=== PATIENT | female | born 1970 | race Caucasian/White ===

== ENCOUNTER 2016-11-17 15:52 | Observation (INO) | payer OTHER ==
[~2016-11-17] VITALS: Ht 175.3 cm; Wt 98.2 kg
[~2016-11-17 15:52] MED LIST: BACT800T5 PO; ESTR1 PO; FENT25DI TD; FENT75DI TD; LORTA10 PO; PERC5TAB12 PO; PROT40TA PO; PYRI200T4 PO; SOMA350T PO; STOO100C PO; WELL150T PO; WELLTAB39 PO; XANA0.5T PO; ZOFR4TAB3 SL
[2016-11-17 15:54] VITALS: BP 162/83; PULSE 68; RESP 24; TEMP 98.8; O2SAT 98
[2016-11-17] MEDS ORDERED: SODIUM CHLOR 0.9% 1000 ML INJ 1,000 ML IV SCH (16:18)
[2016-11-17 16:29] VITALS: O2SAT 99
[2016-11-17] MEDS ORDERED: MORPHINE SULFATE 4 MG/ML INJ IV PUSH ONE (16:30)
[2016-11-17] MEDS ORDERED: FAMOTIDINE 20 MG/2 ML VIAL IV PUSH ONE (16:30)
[2016-11-17] MEDS ORDERED: PANTOPRAZOLE SODIUM 40 MG VIAL IVP ONE (16:30)
[2016-11-17] MEDS ORDERED: ONDANSETRON HCL 4 MG/2 ML VIAL IVP ONE (16:30)
--- NOTE | 2016-11-17 16:34 | PD ---
HPI Chief Complaint: Abdominal Pain Time Seen by Provider: 16:30 Travel History International Travel<30 days: No Contact w/Intl Traveler<30days: No Traveled to known affect area: No History of Present Illness HPI 46-year-old female that presents to the ED for evaluation of severe abdominal pain. Per patient she's had this on and off since Monday. Per patient's progressively getting worse. Per patient she cannot keep anything down because causes the pain to be more severe. She has a history multiple surgeries to her abdomen including gastric surgery and hysterectomy. Per patient in total she's had a different surgeries in her abdomen. Per patient she follows with Dr. Crowder and Dr. dumont and apparently she had a CT scan ordered by Dr. Crowder today for the abdomen which was apparently negative. Per patient she was told by Dr. Crowder that she would require an EGD to better evaluate why she is having this pain. She states that she was in the process of getting this set up when she went to work and she started having more pain so she came here to get evaluated. Per patient she called Dr. Crowder who told her to come here. She states that currently the pain is 10 out of 10. Comes and goes. Mainly in the epigastric area. Has an allergy to contrast media. No radiation of the pain. Nausea and vomiting. Per patient she's had liquidy bowel movements but no blood. Last bowel movement was today. PFSH Past Medical History Arthritis: Yes Asthma: Yes (NO RECENT COMPLICATIONS) Autoimmune Disease: No Blood Disorders: No Anxiety: Yes Cancer: No Cardiovascular Problems: No Diabetes: Yes (CONTROLLED THROUGH DIET) Diminished Hearing: No Endocrine: Yes Genitourinary: Yes Hiatal Hernia: No Hypertension: Yes (RESOLVED WITH DIET) Immune Disorder: No Kidney Stones: Yes (CHRONIC) Musculoskeletal: Yes Neurologic: No Psychiatric: No Reproductive: No Respiratory: No Past Surgical History Abdominal Surgery: Yes (gastric bypass,) AICD: No Appendectomy: Yes Cholecystectomy: Yes Gynecologic Surgery: Yes ( PANNICULECTOMY, HERNIA 2005) Hysterectomy: Yes (COMPLETE) Pacemaker: No Other Surgery: Yes Social History Alcohol Use: Yes (OCCASIONAL) Tobacco Use: No Substance Use: No Allergies-Medications (Allergen,Severity, Reaction): Coded Allergies: Contrast Media (Verified Allergy, Severe, Hives,SWELLING AND SOB, 2/13/15) Reported Meds & Prescriptions Reported Meds & Active Scripts Active Percocet 5-325 mg (Oxycodone/Acetaminophen) Oxycodone 5/325 Acetaminophen Tab 1 Tab PO Q4H PRN Pyridium (Phenazopyridine HCl) 200 Mg Tab 200 Mg PO Q8 Zofran ODT (Ondansetron HCl) 4 Mg Tab 4 Mg SL Q6H PRN FOR NAUSEA/VOMITING Bactrim DS (Sulfamethoxazole-Trimethoprim DS) 1 Tab Tab 1 Tab PO BID Reported Wellbutrin Xl (Bupropion HCl) 300 Mg Lani 300 Mg PO DAILY Duragesic 75 Mcg/Hr (Fentanyl) 75 Mcg/Hr Patch 1 Patch TD Q3D Soma (Carisoprodol) 350 Mg Tab 350 Mg PO TID Duragesic 25 Mcg/Hr (Fentanyl) 25 Mcg/Hr Patch 1 Patch TD Q3D Colace (Docusate Sodium) 100 Mg Cap 100 Mg PO BID PRN Hydrocodone/Acetaminophen 10 mg/325 mg 10 Mg/325 Mg Tab 1 Tab PO Q4-6 PRN Xanax 0.5 mg (Alprazolam) 0.5 Mg Tab 1 Mg PO DAILY Protonix (Pantoprazole Sodium) 40 Mg Tabdr 40 Mg PO DAILY Estrace (Estradiol) 1 Mg Tab 1 Mg PO DAILY Wellbutrin-Sr (Bupropion HCl) 150 Mg Tabcr 150 Mg PO DAILY Review of Systems Except as stated in HPI: all other systems reviewed are Neg Physical Exam Narrative GENERAL: SKIN: Warm and dry. HEAD: Atraumatic. Normocephalic. EYES: Pupils equal and round. No scleral icterus. No injection or drainage. ENT: No nasal bleeding or discharge. Mucous membranes pink and moist. Tongue is midline. No uvula deviation. NECK: Trachea midline. No JVD. CARDIOVASCULAR: Regular rate and rhythm. No murmurs, S3, S4. RESPIRATORY: No accessory muscle use. Clear to auscultation. Breath sounds equal bilaterally. GASTROINTESTINAL: Abdomen soft, very tender to touch in the epigastric region, nondistended. Hepatic and splenic margins not palpable. MUSCULOSKELETAL: Extremities without clubbing, cyanosis, or edema. No obvious deformities. Full range of motion of the upper and lower extremities bilaterally. 2+ pulses bilaterally. NEUROLOGICAL: Awake and alert. No obvious cranial nerve deficits. Motor grossly within normal limits. Five out of 5 muscle strength in the arms and legs. Normal speech. PSYCHIATRIC: Appropriate mood and affect; insight and judgment normal. Data Data Last Documented VS Vital Signs Date Time Temp Pulse Resp B/P Pulse Ox O2 Delivery O2 Flow Rate FiO2 11/17/16 16:29 18 11/17/16 16:29 99 Room Air 11/17/16 15:54 98.8 68 162/83 Orders Complete Blood Count With Diff (11/17/16 16:18) Comprehensive Metabolic Panel (11/17/16 16:18) Lipase (11/17/16 16:18) Lactic Acid (11/17/16 16:18) Prothrombin Time / Inr (Pt) (11/17/16 16:18) Act Partial Throm Time (Ptt) (11/17/16 16:18) Urinalysis - C+S If Indicated (11/17/16 16:18) Iv Access Insert/Monitor (11/17/16 16:18) Ecg Monitoring (11/17/16 16:18) Oximetry (11/17/16 16:18) Morphine Inj (Morphine Inj) (11/17/16 16:30) Ondansetron Inj (Zofran Inj) (11/17/16 16:30) Pantoprazole Inj (Protonix Inj) (11/17/16 16:30) Sodium Chlor 0.9% 1000 Ml Inj (Ns 1000 M (11/17/16 16:18) Electrocardiogram (11/17/16 16:18) Famotidine Inj (Pepcid Inj) (11/17/16 16:30) Hydromorphone Pf Inj (Dilaudid Pf Inj) (11/17/16 17:30) Hydromorphone Pf Inj (Dilaudid Pf Inj) (11/17/16 17:45) Admit Order (Ed Use Only) (11/17/16 17:51) Labs Laboratory Tests Test 11/17/16 16:30 White Blood Count 9.5 TH/MM3 Red Blood Count 4.38 MIL/MM3 Hemoglobin 14.5 GM/DL Hematocrit 41.8 % Mean Corpuscular Volume 95.4 FL Mean Corpuscular Hemoglobin 33.1 PG Mean Corpuscular Hemoglobin 34.7 % Concent Red Cell Distribution Width 14.3 % Platelet Count 250 TH/MM3 Mean Platelet Volume 8.8 FL Neutrophils (%) (Auto) 65.0 % Lymphocytes (%) (Auto) 24.6 % Monocytes (%) (Auto) 9.6 % Eosinophils (%) (Auto) 0.4 % Basophils (%) (Auto) 0.4 % Neutrophils # (Auto) 6.2 TH/MM3 Lymphocytes # (Auto) 2.3 TH/MM3 Monocytes # (Auto) 0.9 TH/MM3 Eosinophils # (Auto) 0.0 TH/MM3 Basophils # (Auto) 0.0 TH/MM3 CBC Comment AUTO DIFF Differential Comment AUTO DIFF CONFIRMED Platelet Estimate NORMAL Platelet Morphology Comment NORMAL Prothrombin Time 9.6 SEC Prothromb Time International 0.9 RATIO Ratio Activated Partial 21.2 SEC Thromboplast Time Sodium Level 138 MEQ/L Potassium Level 3.6 MEQ/L Chloride Level 101 MEQ/L Carbon Dioxide Level 26.9 MEQ/L Anion Gap 10 MEQ/L Blood Urea Nitrogen 10 MG/DL Creatinine 0.63 MG/DL Estimat Glomerular Filtration 101 ML/MIN Rate Random Glucose 93 MG/DL Lactic Acid Level 1.3 mmol/L Calcium Level 8.8 MG/DL Total Bilirubin 0.6 MG/DL Aspartate Amino Transf 26 U/L (AST/SGOT) Alanine Aminotransferase 33 U/L (ALT/SGPT) Alkaline Phosphatase 83 U/L Total Protein 7.9 GM/DL Albumin 3.6 GM/DL Lipase 330 U/L [facility] Medical Decision Making Medical Screen Exam Complete: Yes Emergency Medical Condition: Yes Medical Record Reviewed: Yes Interpretation(s) CBC & BMP Diagram 11/17/16 16:30 LFTS and lipase WNL lactic acid negative Differential Diagnosis Acute abdomen versus pancreatitis versus obstruction versus gastritis versus gastroenteritis versus acute on chronic pain Narrative Course 46-year-old female that presents to the ED for evaluation of epigastric abdominal pain. Patient was properly examined and was found to have signs and symptoms consistent with significant abdominal discomfort. CT of the abdomen was reviewed by me and my attending and was negative done at [place]. At this time labs were ordered. Patient was started on IV with pain medications. Labs showed no sign of acute disease. My attending Dr. Maldonado spoke with Dr. Foreman who came here and evaluated the patient and wants patient to be admitted for LIKELY EGD done by him. Patient was told this and agrees with plan. Patient was admitted to Dr. Foreman. Diagnosis Primary Impression: Abdominal pain Qualified Code: R10.13 - Epigastric pain Admitting Information Admitting Physician Requests: Fred Mckeonardo PA Nov 17, 2016 16:34
[2016-11-17 17:09] LABS: AUTOMATED NEUTROPHIL # 6.2 TH/MM3 (1.8-7.7); BASOPHIL % 0.4 % (0.0-2.0); EOSINOPHIL % 0.4 % (0.0-4.0); HEMATOCRIT 41.8 % (35.0-46.0); LYMPH % 24.6 % (9.0-44.0); LYMPHOCYTE # 2.3 TH/MM3 (1.0-4.8); MEAN CELL VOLUME 95.4 FL (80.0-100.0); MEAN CORPUSCULAR HEMOGLOBIN 33.1 PG (27.0-34.0); MEAN CORPUSCULAR HGB CONC 34.7 % (32.0-36.0); MONO % 9.6 % (0.0-8.0); PLATELET COUNT 250 TH/MM3 (150-450); RED BLOOD COUNT 4.38 MIL/MM3 (4.00-5.30); RED CELL DISTRIBUTION WIDTH 14.3 % (11.6-17.2); WHITE BLOOD COUNT 9.5 TH/MM3 (4.0-11.0)
[2016-11-17 17:13] LABS: HEMO FLAGS AUTO DIFF
[2016-11-17 17:21] LABS: APTT (PATIENT) 21.2 SEC (24.3-30.1); INTERNATIONAL NORMALIZED RATIO 0.9 RATIO; PROTHROMBIN TIME - PATIENT 9.6 SEC (9.8-11.6)
[2016-11-17] MEDS ORDERED: HYDROmorphone HCL PF 1 MG/ML VIAL IV PUSH ONE ×2 (17:30→17:45)
[2016-11-17 17:41] LABS: PLATELET ESTIMATE SMEAR NORMAL (NORMAL); PLATELET MORPHOLOGY NORMAL (NORMAL); SCAN/DIFF AUTO DIFF CONFIRMED
[2016-11-17 17:46] LABS: ALT (GPT) 33 U/L (10-53); ANION GAP 10 MEQ/L (5-15); AST (GOT) 26 U/L (15-37); BICARBONATE 26.9 MEQ/L (21.0-32.0); BLOOD UREA NITROGEN 10 MG/DL (7-18); CHLORIDE 101 MEQ/L (98-107); GLOMERULAR FILTRATION RATE 101 ML/MIN (>89); POTASSIUM 3.6 MEQ/L (3.5-5.1); SODIUM (NA) 138 MEQ/L (136-145)
[2016-11-17 17:49] LABS: ALKALINE PHOSPHATASE 83 U/L (45-117); TOTAL BILIRUBIN ADULT 0.6 MG/DL (0.2-1.0)
--- NOTE | 2016-11-17 17:55 | PD ---
Data Data Last Documented VS Vital Signs Date Time Temp Pulse Resp B/P Pulse Ox O2 Delivery O2 Flow Rate FiO2 11/17/16 16:29 18 11/17/16 16:29 99 Room Air 11/17/16 15:54 98.8 68 162/83 Orders Complete Blood Count With Diff (11/17/16 16:18) Comprehensive Metabolic Panel (11/17/16 16:18) Lipase (11/17/16 16:18) Lactic Acid (11/17/16 16:18) Prothrombin Time / Inr (Pt) (11/17/16 16:18) Act Partial Throm Time (Ptt) (11/17/16 16:18) Urinalysis - C+S If Indicated (11/17/16 16:18) Iv Access Insert/Monitor (11/17/16 16:18) Ecg Monitoring (11/17/16 16:18) Oximetry (11/17/16 16:18) Morphine Inj (Morphine Inj) (11/17/16 16:30) Ondansetron Inj (Zofran Inj) (11/17/16 16:30) Pantoprazole Inj (Protonix Inj) (11/17/16 16:30) Sodium Chlor 0.9% 1000 Ml Inj (Ns 1000 M (11/17/16 16:18) Electrocardiogram (11/17/16 16:18) Famotidine Inj (Pepcid Inj) (11/17/16 16:30) Hydromorphone Pf Inj (Dilaudid Pf Inj) (11/17/16 17:30) Hydromorphone Pf Inj (Dilaudid Pf Inj) (11/17/16 17:45) Labs Laboratory Tests Test 11/17/16 16:30 White Blood Count 9.5 TH/MM3 Red Blood Count 4.38 MIL/MM3 Hemoglobin 14.5 GM/DL Hematocrit 41.8 % Mean Corpuscular Volume 95.4 FL Mean Corpuscular Hemoglobin 33.1 PG Mean Corpuscular Hemoglobin 34.7 % Concent Red Cell Distribution Width 14.3 % Platelet Count 250 TH/MM3 Mean Platelet Volume 8.8 FL Neutrophils (%) (Auto) 65.0 % Lymphocytes (%) (Auto) 24.6 % Monocytes (%) (Auto) 9.6 % Eosinophils (%) (Auto) 0.4 % Basophils (%) (Auto) 0.4 % Neutrophils # (Auto) 6.2 TH/MM3 Lymphocytes # (Auto) 2.3 TH/MM3 Monocytes # (Auto) 0.9 TH/MM3 Eosinophils # (Auto) 0.0 TH/MM3 Basophils # (Auto) 0.0 TH/MM3 CBC Comment AUTO DIFF Differential Comment AUTO DIFF CONFIRMED Platelet Estimate NORMAL Platelet Morphology Comment NORMAL Prothrombin Time 9.6 SEC Prothromb Time International 0.9 RATIO Ratio Activated Partial 21.2 SEC Thromboplast Time Sodium Level 138 MEQ/L Potassium Level 3.6 MEQ/L Chloride Level 101 MEQ/L Carbon Dioxide Level 26.9 MEQ/L Anion Gap 10 MEQ/L Blood Urea Nitrogen 10 MG/DL Creatinine 0.63 MG/DL Estimat Glomerular Filtration 101 ML/MIN Rate Random Glucose 93 MG/DL Lactic Acid Level 1.3 mmol/L Calcium Level 8.8 MG/DL Total Bilirubin 0.6 MG/DL Aspartate Amino Transf 26 U/L (AST/SGOT) Alanine Aminotransferase 33 U/L (ALT/SGPT) Alkaline Phosphatase 83 U/L Total Protein 7.9 GM/DL Albumin 3.6 GM/DL Lipase 330 U/L MDM Supervised Visit with AMY: Yes Narrative Course The history, exam, and medical decision-making in the associated mid-level provider note were completed with my assistance. I reviewed and agree with the findings presented. I attest that I had a [id number] encounter with the patient on the same day, and personally performed and documented my assessment and findings in the medical record. *My assessment and Findings: 46 year-old woman presents to the emergency department with about 5 days worth of abdominal pain. Remote history of gastric bypass surgery with multiple complications multiple previous surgeries. Now presenting with severe pain. 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 She had a CT scan done this morning at [facility] which was normal. She apparently does not have trouble with chronic abdominal pain. She did take Suboxone regularly up until last month. She has significant abdominal tenderness, still in significant pain despite IV morphine. Dr. Foreman came down to evaluate the patient, and is going to take her for an endoscopy. Will be admitted. Garfield Maldonado MD Nov 17, 2016 17:55
[2016-11-17] MEDS ORDERED: PROPOFOL 200 MG/20 ML AMP IV ONE (18:50)
[2016-11-17] MEDS: 1/2 NS + KCL 20 MEQ INJ 1,000 ML IV SCH (19:01)
[2016-11-17] MEDS: PANTOPRAZOLE SODIUM 40 MG VIAL IV PUSH SCH (19:15)
[2016-11-17] MEDS ORDERED: ENALAPRILAT 1.25 MG/ML VIAL IV PUSH PRN (19:15)
[2016-11-17] MEDS ORDERED: ONDANSETRON HCL 4 MG/2 ML VIAL IV PRN (19:15)
[2016-11-17] MEDS ORDERED: Post-op Orders (for Pharmacy) MISC OTHER ONE (19:15)
[2016-11-17] MEDS ORDERED: diphenhydrAMINE HCL ELIXIR 12.5 MG/5 ML CUP PO PRN (19:15)
[2016-11-17] MEDS ORDERED: diphenhydrAMINE HCL 50 MG/ML VIAL IV PRN (19:15)
[2016-11-17] MEDS ORDERED: SODIUM CHLORIDE 0.9% FLUSH 10 ML FLUSH PRN (19:15)
[2016-11-17] MEDS ORDERED: *morphine SULFATE 8 MG/ML PERIprocedure ONLY ONE (19:33)
--- NOTE | 2016-11-17 19:34 | GIPROC ---
[facility] [address] [facility]. [facility], [id number] EGD WITH DILATION PROCEDURE REPORT EXAM DATE: 11/17/2016 PATIENT NAME: Sobeida Salomon MR#: [id number] BIRTHDATE: 1970 ATTENDING: Bernard Foreman MD ORDER #: [id number] WET MIXER: Radha Orona and Lyubov Simon STATUS: inpatient INDICATIONS: The patient is a 46 yr old female here for an EGD with dilation due to periumbilical abdominal pain and epigastric abdominal pain PROCEDURE PERFORMED: EGD w/ balloon dilation of esophagus MEDICATIONS: Per Anesthesia and None. TOPICAL ANESTHETIC: none CONSENT: The patient understands the risks and benefits of the procedure and understands that these risks include, but are not limited to: sedation, allergic reaction, infection, perforation and/or bleeding. Alternative means of evaluation and treatment include, among others: physical exam, x-rays, and/or surgical intervention. The patient elects to proceed with this endoscopic procedure. medical equipment was checked for proper function. Hand hygiene and appropriate measures for infection prevention was taken. After the risks, benefits and alternatives of the procedure were thoroughly explained, Informed consent was verified, confirmed and timeout was successfully executed by the treatment team. The patient was anesthetized with anesthesia and the Zample [id number] endoscope was introduced through the mouth and advanced to the anastomosis. Proximal dilation noted, tight gastrojejunostmy, small ulcers noted, GJ plicator visualized. The instrument was slowly withdrawn as the mucosa was fully examined. Stricturing of GJ, small ulcers. Dilation was performed at gastrojejunostomy. DILATOR: SIZE(S): RESISTANCE: HEME: APPEARANCE: Dilator: Balloon Size(s): 18 Resistance: minimal Appearance: adequate COMMENT: Retroflexion was not performed ADVERSE EVENTS: There were no complications. IMPRESSIONS: 1. Stricturing of GJ, small ulcers 2. Retroflexion was not performed RECOMMENDATIONS: Continue PPI REPEAT EXAM: NONE Bernard Foreman MD eSigned: Bernard Foreman MD 11/17/2016 7:34 PM cc:
[2016-11-17 20:00] VITALS: BP 115/71; PULSE 68; RESP 18; TEMP 97.9; O2SAT 93
[2016-11-17] MEDS: METOCLOPRAMIDE HCL 10 MG/2 ML VIAL IV PUSH SCH (21:08)
[2016-11-17] MEDS: SODIUM CHLORIDE 0.9% FLUSH 10 ML FLUSH IV FLUSH SCH (21:12)
--- NOTE | 2016-11-17 21:12 | PD.CONS ---
History of Present Illness Service [facility] hospitalist Consult Requested By Dr. Bernard Foreman Reason for Consult Medical management/pain management Primary Care Physician Dennys Earl MD Diagnoses: (1) Abdominal pain (2) Anxiety (3) Gastritis History of Present Illness 46 y.o. female with distant hx of gastric bypass in 2003 and recurrent abd pain presents for abd pain. Reportedly had negative CT outpt today and subsequently had endoscopy with Dr Foreman revealing some gastritis and small ulcers. Her pain is actually better now. We have been consulted to a/w pain control and other medical issues. It is noted that pt had "GI bug" a couple of weeks ago. This had improved except for poor appetite. She started having significant mid abd pain 4 days ago and this has progressed. Review of Systems Constitutional: COMPLAINS OF: Fatigue, Change in appetite Eyes: DENIES: Blurred vision, Diplopia, Eye inflammation, Eye pain, Vision loss , Photosensitivity, Double Vision Ears, nose, mouth, throat: DENIES: Tinnitus, Hearing loss, Vertigo, Nasal discharge, Oral lesions, Throat pain, Hoarseness, Ear Pain, Running Nose, Epistaxis, Sinus Pain, Toothache, Odynophagia Respiratory: DENIES: Apneas, Cough, Snoring, Wheezing, Hemoptysis, Sputum production, Shortness of breath Cardiovascular: DENIES: Chest pain, Palpitations, Syncope, Dyspnea on Exertion , PND, Lower Extremity Edema, Orthopnea, Claudication Gastrointestinal: COMPLAINS OF: Abdominal pain, Nausea Musculoskeletal: COMPLAINS OF: Back pain Hematologic/lymphatic: DENIES: Bruising, Lymphadenopathy Immunologic/allergic: DENIES: Eczema, Urticaria Psychiatric: COMPLAINS OF: Anxiety Past Family Social History Allergies: Coded Allergies: Contrast Media (Verified Allergy, Severe, Hives,SWELLING AND SOB, 07/25/14) Past Medical History Chronic abdominal pain Anxiety Asthma B12 deficiency Major depression [place] degenerative disc disease Previous gastric surgery GERD Long-term use of opiate analgesic Obesity History of positive AMA Past Surgical History in 197901/28/95 Cholecystectomy Anastomotic ulcer gastric biopsy Gastric surgery for morbid obesity in Jun 2003 Hysterectomy Pending uvulectomy Lysis of adhesions Incisional hernia repair Reported Medications Clonazepam 0.25mg prn anxiety Protonix (Pantoprazole Sodium) 40 Mg Tabdr 40 Mg PO DAILY Estrace (Estradiol) 1 Mg Tab 1 Mg PO DAILY Family History Heart disease in father and mother Family History of thyroid disease Social History 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 Pleasant, cooperative SKIN: No rashes, ecchymoses or lesions. Cool and dry. HEAD: Atraumatic. Normocephalic. No temporal or scalp tenderness. EYES: Pupils equal round and reactive. Extraocular motions intact. No scleral icterus. No injection or drainage. ENT: Nose without bleeding, purulent drainage or septal hematoma. Throat without erythema, tonsillar hypertrophy or exudate. Uvula midline. Airway patent. NECK: Trachea midline. No JVD or lymphadenopathy. Supple, nontender, no meningeal signs. CARDIOVASCULAR: Regular rate and rhythm without murmurs, gallops, or rubs. RESPIRATORY: Clear to auscultation. Breath sounds equal bilaterally. No wheezes , rales, or rhonchi. GASTROINTESTINAL: Post surgical changes to abd, ttp in mid-epigastrium, bs wnl, No rebound, +voluntary guarding. No hepato-splenomegaly, or palpable masses. MUSCULOSKELETAL: Extremities without clubbing, cyanosis, or edema. No joint tenderness, effusion, or edema noted. No calf tenderness. Negative Homans sign bilaterally. NEUROLOGICAL: Awake and alert. Cranial nerves II through XII intact. Motor and sensory grossly within normal limits. Five out of 5 muscle strength in all muscle groups. Normal speech. Laboratory Laboratory Tests Test 11/17/16 16:30 White Blood Count 9.5 Red Blood Count 4.38 Hemoglobin 14.5 Hematocrit 41.8 Mean Corpuscular Volume 95.4 Mean Corpuscular Hemoglobin 33.1 Mean Corpuscular Hemoglobin 34.7 Concent Red Cell Distribution Width 14.3 Platelet Count 250 Mean Platelet Volume 8.8 Neutrophils (%) (Auto) 65.0 Lymphocytes (%) (Auto) 24.6 Monocytes (%) (Auto) 9.6 Eosinophils (%) (Auto) 0.4 Basophils (%) (Auto) 0.4 Neutrophils # (Auto) 6.2 Lymphocytes # (Auto) 2.3 Monocytes # (Auto) 0.9 Eosinophils # (Auto) 0.0 Basophils # (Auto) 0.0 CBC Comment AUTO DIFF Differential Comment AUTO DIFF CONFIRMED Platelet Estimate NORMAL Platelet Morphology Comment NORMAL Prothrombin Time 9.6 Prothromb Time International 0.9 Ratio Activated Partial 21.2 Thromboplast Time Sodium Level 138 Potassium Level 3.6 Chloride Level 101 Carbon Dioxide Level 26.9 Anion Gap 10 Blood Urea Nitrogen 10 Creatinine 0.63 Estimat Glomerular Filtration 101 Rate Random Glucose 93 Lactic Acid Level 1.3 Calcium Level 8.8 Total Bilirubin 0.6 Aspartate Amino Transf 26 (AST/SGOT) Alanine Aminotransferase 33 (ALT/SGPT) Alkaline Phosphatase 83 Total Protein 7.9 Albumin 3.6 Lipase 330 Result Diagram: 11/17/16 1630 11/17/16 1630 Assessment and Plan Problem List: (1) Abdominal pain Status: Acute Plan: per gen surgery. Pt does not want to get back on chronic opiate tx. Will be cautious with administration of pain meds Try toradol IV limited basis with dilaudid for severe pain (2) Gastritis Status: Acute Plan: ppi (3) Anxiety Status: Chronic Plan: continue med Problem Qualifiers (1) Abdominal pain: Qualified Code: R10.13 - Epigastric pain Umesh Flores MD PhD Nov 17, 2016 21:12
[2016-11-17] MEDS ORDERED: LORazepam 2 MG/ML VIAL IV PUSH PRN (22:00)
[2016-11-18] VITALS (8 sets, daily range): BP systolic 98–118; BP diastolic 58–69; PULSE 52–76; RESP 15–18; TEMP 96.4–98.8; O2SAT 95–97
[2016-11-18] MEDS: METOCLOPRAMIDE HCL 10 MG/2 ML VIAL IV PUSH SCH ×3 (02:50→14:26)
[2016-11-18] MEDS: 1/2 NS + KCL 20 MEQ INJ 1,000 ML IV SCH ×3 (02:50→18:24)
[2016-11-18] MEDS: KETOROLAC TROMETHAMINE 30 MG/ML (IVP) VIAL IV PUSH PRN ×3 (02:56→19:51)
[2016-11-18 06:59] LABS: AUTOMATED NEUTROPHIL # 4.5 TH/MM3 (1.8-7.7); BASOPHIL % 0.3 % (0.0-2.0); EOSINOPHIL # 0.1 TH/MM3 (0-0.4); EOSINOPHIL % 0.8 % (0.0-4.0); HEMATOCRIT 33.2 % (35.0-46.0); HEMO FLAGS DIFF FINAL; LYMPH % 23.9 % (9.0-44.0); LYMPHOCYTE # 1.6 TH/MM3 (1.0-4.8); MEAN CELL VOLUME 95.7 FL (80.0-100.0); MEAN CORPUSCULAR HEMOGLOBIN 33.1 PG (27.0-34.0); MEAN CORPUSCULAR HGB CONC 34.6 % (32.0-36.0); MONO % 8.8 % (0.0-8.0); NEUT % 66.2 % (16.0-70.0); PLATELET COUNT 201 TH/MM3 (150-450); RED BLOOD COUNT 3.47 MIL/MM3 (4.00-5.30); RED CELL DISTRIBUTION WIDTH 14.1 % (11.6-17.2); WHITE BLOOD COUNT 6.8 TH/MM3 (4.0-11.0)
[2016-11-18 07:39] LABS: BICARBONATE 25.2 MEQ/L (21.0-32.0); MAGNESIUM 1.7 MG/DL (1.5-2.5); POTASSIUM 3.7 MEQ/L (3.5-5.1)
[2016-11-18] MEDS: SODIUM CHLORIDE 0.9% FLUSH 10 ML FLUSH IV FLUSH SCH ×2 (07:49→20:59)
[2016-11-18] MEDS: PANTOPRAZOLE SODIUM 40 MG VIAL IV PUSH SCH ×2 (07:49→20:59)
--- NOTE | 2016-11-18 11:08 | HHI.PR ---
Subjective Subjective Notes Pt still with episode of pain overnight at mid abdomen, currently pain 3-4/10, + bowel fxn Objective Vitals/I&O Vital Signs Date Time Temp Pulse Resp B/P Pulse Ox O2 Delivery O2 Flow Rate FiO2 11/18/16 08:00 96.7 70 17 107/59 97 11/17/16 19:45 Room Air 11/17/16 18:55 2 Labs Laboratory Tests Test 11/17/16 11/18/16 16:30 06:21 White Blood Count 9.5 6.8 Red Blood Count 4.38 3.47 Hemoglobin 14.5 11.5 Hematocrit 41.8 33.2 Mean Corpuscular Volume 95.4 95.7 Mean Corpuscular Hemoglobin 33.1 33.1 Mean Corpuscular Hemoglobin 34.7 34.6 Concent Red Cell Distribution Width 14.3 14.1 Platelet Count 250 201 Mean Platelet Volume 8.8 8.2 Neutrophils (%) (Auto) 65.0 66.2 Lymphocytes (%) (Auto) 24.6 23.9 Monocytes (%) (Auto) 9.6 8.8 Eosinophils (%) (Auto) 0.4 0.8 Basophils (%) (Auto) 0.4 0.3 Neutrophils # (Auto) 6.2 4.5 Lymphocytes # (Auto) 2.3 1.6 Monocytes # (Auto) 0.9 0.6 Eosinophils # (Auto) 0.0 0.1 Basophils # (Auto) 0.0 0.0 CBC Comment AUTO DIFF DIFF FINAL Differential Comment AUTO DIFF CONFIRMED Platelet Estimate NORMAL Platelet Morphology Comment NORMAL Prothrombin Time 9.6 Prothromb Time International 0.9 Ratio Activated Partial 21.2 Thromboplast Time Sodium Level 138 141 Potassium Level 3.6 3.7 Chloride Level 101 106 Carbon Dioxide Level 26.9 25.2 Anion Gap 10 10 Blood Urea Nitrogen 10 5 Creatinine 0.63 0.34 Estimat Glomerular Filtration 101 206 Rate Random Glucose 93 87 Lactic Acid Level 1.3 Calcium Level 8.8 7.5 Total Bilirubin 0.6 Aspartate Amino Transf 26 (AST/SGOT) Alanine Aminotransferase 33 (ALT/SGPT) Alkaline Phosphatase 83 Total Protein 7.9 Albumin 3.6 Lipase 330 Magnesium Level 1.7 Cardiovascular: Regular Lungs: Clear Abdomen: Other (soft +ttp epigastric, lower midline, no guarding, no rebound, healed incisional scars) A/P Assessment and Plan Hx of rygb 2004 acute onset of severe abdominal pain, s/p egd with small ulcers , stricture PLAN Liquid diet pain control PPI, carafate appreciate medicine recommendations may benefit from UGI SBFT after clearance of CTcontrast Bernard Foreman MD Nov 18, 2016 11:08
[2016-11-18] MEDS: SUCRALFATE 1 GM/10 ML CUP PO SCH ×3 (11:58→20:59)
--- NOTE | 2016-11-18 12:24 | MH ---
cc: ERIK CHAMPION MD DATE OF ADMISSION: 11/17/2016 CHIEF COMPLAINT 1. Abdominal pain. 2. History of bariatric surgery HISTORY OF PRESENT ILLNESS The patient is of 38-year-old female presents with acute onset of severe epigastric and lower mid abdominal pain. She states the pain started Monday and has waxed and waned. It continues to get progressively worse. The patient has also had associated episodes of nausea and vomiting and decreased p.o. intake. She states the pain is currently a 10/10, as well as tenderness to 4/10, worse with moving and some improvement with lying still. She came to emergency department for evaluation. She did have a CT scan without significant abnormality. The patient does have complicated medical-surgical history including Salina-en-Y gastric bypass; 2003 for which she has done relatively well. The patient also had multiple intra-abdominal surgeries including ulcers and previous internal hernia. The patient is very compliant with medications and bariatric vitamins. Further denies any constipation and does have liquid bowel movements denies any blood, denies fevers or chills. Although the patient did have recent episode approximately a week and half ago of the flu for several days. PAST MEDICAL HISTORY: 1. Chronic pain. 2. Anxiety. 3. Asthma. 4. Reflux 5. History of diabetes resolved 6. status post bariatric surgery 7. obesity 8. Opioid use. 9. Depression. 10. Asthma. PAST SURGICAL HISTORY 1. Salina-en-Y gastric bypass 2003 2. 3. Cholecystectomy 4. Gastric ulcer 5. Hysterectomy 6. Lysis of adhesions 7. Incisional hernia 8. Appendectomy 9. Panniculectomy 10. Removal of kidney stones. MEDICATIONS See EMR. FAMILY HISTORY Father and mother with coronary artery disease Thyroid disease. SOCIAL HISTORY Denies smoking, occasional EtOH denies IVDA. ALLERGIES Contrast media. REVIEW OF SYSTEMS GENERAL: Complains of weakness denies current fevers. HEAD, EYES, EARS, NOSE, AND THROAT: Denies eye pain, ear pain. NECK: Denies pain or swelling LUNGS: Denies cough or wheeze. CARDIAC: Denies palpitations or chest pain. ABDOMEN: Complains of nausea, vomiting, abdominal pain. GENITOURINARY: Denies dysuria, hematuria. MUSCULOSKELETAL: Complained of chronic back pain, extremity arthralgia. NEUROLOGIC: Denies numbness or tingling. ENDOCRINE: Denies polyuria or polydipsia. PHYSICAL EXAMINATION GENERAL: The patient in no acute distress. VITAL SIGNS: Temperature 98.6, pulse 86, respirations 18, blood pressure 119/69, 95% on 2 liters nasal cannula. HEAD, EYES, EARS, NOSE, AND THROAT: Pupils equal, round, reactive to light and accommodation. NECK: Supple. Trachea midline. LUNGS: Bilateral expansion. Clear. HEART: S1-S2 regular. No murmur. ABDOMEN: Well-healed surgical scar. Soft, positive tenderness to palpation, deep epigastric, positive tenderness to palpation lower midline without rebound without guarding. EXTREMITIES: Warm, well perfused. NEUROLOGIC: Alert and oriented times four. Moving all extremities. 5/5 motor. SKIN: No obvious masses or lesions. PSYCHIATRIC: Good insight, good judgment. LABORATORY AND DIAGNOSTIC DATA WBC is 9.5, hemoglobin 14.5, hematocrit 41.8, platelets 250 sodium 138, potassium 3.6, chloride 101, CO2 is 26, BUN and creatinine 0.63, lactate is 1.3, glucose 93, T bili 0.6, AST 26, ALT 33, alk phos 83, lipase 338, albumin 3.6. CT reviewed by myself. No evidence of free intraperitoneal or fluid. Bypass portion with contrast notes to be patent. Minimal roulen dilation and no evidence of obstruction. No evidence of straining or mesenteric edema. Biliopancreatic and roulen is noted to be patent. ASSESSMENT The patient history of gastric bypass 2003, 46-year-old female presents with acute onset of mid gastric and epigastric pain. At this point the patient will benefit from n.p.o. IV fluids, pain control, I think that it is prudent to assess the patient with endoscopy for further evaluation and rule out any pathology such as stricture and ulcers. Further endoscopically we can minimally evaluate the Roulen further assess the patient. Will plan to take the patient for endoscopy. The patient's CT scan did not currently look concerning, however occasionally a hernia can present with negative CT scans. We will continue to observe and monitor for this potential issue. Further upper GI, small-bowel follow-through, maybe warranted to further delineate any bypass function and evaluate for any abnormality. This was discussed with the patient in detail, discussed with bariatric surgery team as well. We will admit the patient for observation, we will recheck labs in an attempt to delineate the etiology of the patient's severe abdominal pain. If all else is negative. The patient may benefit from diagnostic laparoscopy. However, again given current circumstances we will attempt to evaluate with noninvasive means first. MD OMEGA Chavez/jovi /11:14 AM /11:32 AM BRENT
--- NOTE | 2016-11-18 15:22 | HHI.PR ---
Subjective Remarks Pt reports that she continues to have intermittent abdominal pain in the upper mid abdomen Some nausea but no vomiting. She reports that this is similar to when she had a bowel obstruction around 10 years ago Objective Vitals Vital Signs Date Time Temp Pulse Resp B/P Pulse Ox O2 Delivery O2 Flow Rate FiO2 11/18/16 08:00 96.7 70 17 107/59 97 11/18/16 04:00 96.6 58 18 98/58 96 11/18/16 03:44 20 11/18/16 02:00 95 11/18/16 00:00 96.4 55 18 99/59 95 11/17/16 20:05 20 11/17/16 20:00 97.9 68 18 115/71 93 11/17/16 19:45 80 16 123/74 96 Room Air 11/17/16 19:30 65 18 112/68 99 Room Air 11/17/16 19:15 67 16 117/70 100 Room Air 11/17/16 18:55 98.6 86 14 119/69 95 Nasal Cannula 2 11/17/16 16:29 18 11/17/16 16:29 99 Room Air 11/17/16 15:54 98.8 68 24 162/83 98 Room Air 11/17/16 11/17/16 11/18/16 15:00 23:00 07:00 Intake Total 1167 ml 688 ml Output Total 0 ml 0 ml Balance 1167 ml 688 ml Intake Oral 0 ml 0 ml IV Total 667 ml 688 ml Other 500 ml Output Urine Total 0 ml 0 ml # Bowel Movements 0 0 Result Diagram: 11/18/16 0621 11/18/16 0621 Other Results Laboratory Tests Test 11/17/16 11/18/16 16:30 06:21 White Blood Count 9.5 TH/MM3 6.8 TH/MM3 Red Blood Count 4.38 MIL/MM3 3.47 MIL/MM3 Hemoglobin 14.5 GM/DL 11.5 GM/DL Hematocrit 41.8 % 33.2 % Mean Corpuscular Volume 95.4 FL 95.7 FL Mean Corpuscular Hemoglobin 33.1 PG 33.1 PG Mean Corpuscular Hemoglobin 34.7 % 34.6 % Concent Red Cell Distribution Width 14.3 % 14.1 % Platelet Count 250 TH/MM3 201 TH/MM3 Mean Platelet Volume 8.8 FL 8.2 FL Neutrophils (%) (Auto) 65.0 % 66.2 % Lymphocytes (%) (Auto) 24.6 % 23.9 % Monocytes (%) (Auto) 9.6 % 8.8 % Eosinophils (%) (Auto) 0.4 % 0.8 % Basophils (%) (Auto) 0.4 % 0.3 % Neutrophils # (Auto) 6.2 TH/MM3 4.5 TH/MM3 Lymphocytes # (Auto) 2.3 TH/MM3 1.6 TH/MM3 Monocytes # (Auto) 0.9 TH/MM3 0.6 TH/MM3 Eosinophils # (Auto) 0.0 TH/MM3 0.1 TH/MM3 Basophils # (Auto) 0.0 TH/MM3 0.0 TH/MM3 CBC Comment AUTO DIFF DIFF FINAL Differential Comment AUTO DIFF CONFIRMED Platelet Estimate NORMAL Platelet Morphology Comment NORMAL Prothrombin Time 9.6 SEC Prothromb Time International 0.9 RATIO Ratio Activated Partial 21.2 SEC Thromboplast Time Sodium Level 138 MEQ/L 141 MEQ/L Potassium Level 3.6 MEQ/L 3.7 MEQ/L Chloride Level 101 MEQ/L 106 MEQ/L Carbon Dioxide Level 26.9 MEQ/L 25.2 MEQ/L Anion Gap 10 MEQ/L 10 MEQ/L Blood Urea Nitrogen 10 MG/DL 5 MG/DL Creatinine 0.63 MG/DL 0.34 MG/DL Estimat Glomerular Filtration 101 ML/MIN 206 ML/MIN Rate Random Glucose 93 MG/DL 87 MG/DL Lactic Acid Level 1.3 mmol/L Calcium Level 8.8 MG/DL 7.5 MG/DL Total Bilirubin 0.6 MG/DL Aspartate Amino Transf 26 U/L (AST/SGOT) Alanine Aminotransferase 33 U/L (ALT/SGPT) Alkaline Phosphatase 83 U/L Total Protein 7.9 GM/DL Albumin 3.6 GM/DL Lipase 330 U/L Magnesium Level 1.7 MG/DL Objective Remarks General: NAD, AAOx3 Chest: CTA Cardiac: Regular Abd: +BS, soft nondistended, mid abdominal tenderness, no guarding or rebound Ext: No edema A/P Problem List: (1) Abdominal pain Status: Acute Plan: - Pt is a 46 y/o female with hx of Salina-n-Y gastric bypass surgery in 2003 who was admitted with acute onset of severe abdominal pain - Pt was admitted to General Surgery and underwent evaluation with EGD on with Dr. Bernard Foreman which revealed stricturing of GJ and small ulcers. Dilation was performed at gastrojejunostomy. - Protonix 40mg po BID - Carafate 1gram ACHS - Pt does not want to get back on chronic opiate tx. - Toradol IV limited basis with Dilaudid for severe pain - Will discuss the case with General Surgery today ?UGI/SBFT - Pt had a noted decrease in her H/H today, no active bleeding. This is likely dilutional as the pt reports that she had not been eating or drinking much for several days prior to admission and was likely hemoconcentrated at admission. - Repeat labs in AM - Supportive care - Full liquid diet ordered - DVT prophylaxis with SCDs (2) Gastritis Status: Acute Plan: - PPI (3) Anxiety Status: Chronic Plan: - Cont. home meds Assessment and Plan Patient examined. Assessment and plan formulated with Ella Mcneil PA-C. I agree with the above. Problem Qualifiers (1) Abdominal pain: Qualified Code: R10.13 - Epigastric pain Ella Mcneil Nov 18, 2016 15:22 Wang Silva DO Nov 23, 2016 00:50
[2016-11-18] MEDS: oxyCODONE/ACETAMINOPHEN 5 MG/325 MG TAB PO PRN ×2 (15:26→21:06)
--- NOTE | 2016-11-18 17:50 | EKG ---
Date Performed: 11/17/2016 Time Performed: 16:48:35 PTAGE: 46 years EKG: Sinus rhythm NORMAL ECG PREVIOUS TRACING : 12/07/2005 23.51 Compared to prior tracing no significant change DOCTOR: Lolita Aragon Interpretating Date/Time 11/18/2016 17:47:39
[2016-11-18] MEDS: MAGNESIUM CITRATE SOLN 300 ML BTL PO SCH ×2 (18:23→23:48)
[2016-11-18] MEDS ORDERED: METOCLOPRAMIDE HCL 10 MG/2 ML VIAL IV PUSH PRN (19:15)
[2016-11-18] MEDS: HYDROmorphone HCL PF 1 MG/ML VIAL IV PUSH PRN (20:24)
[2016-11-18] MEDS ORDERED: PANTOPRAZOLE SOD 40 MG DELAYED RELEASE TAB PO SCH (21:00)
[2016-11-18] MEDS: BISACODYL EC 5 MG TABEC PO SCH (23:48)
[2016-11-19] MEDS ORDERED: SUCRALFATE 1 GM/10 ML CUP PO SCH
[2016-11-19] MEDS: oxyCODONE/ACETAMINOPHEN 5 MG/325 MG TAB PO PRN ×3 (01:05→22:21)
[2016-11-19 01:11] LABS: BACTERIA, URINE RARE /hpf; BLOOD, URINE NEG (NEG); COMMENT (UR) CULT NOT INDICATED; CULTURE IF INDICATED CULT NOT INDICATED; GLUCOSE,URINE NEG (NEG); KETONE, URINE NEG (NEG); MUCUS URINE FEW /lpf (OCC); NITRITE,URINE NEG (NEG); PH, URINE 6.5 (5.0-8.5); URINE COLOR YELLOW (YELLW/STRAW)
[2016-11-19] MEDS: HYDROmorphone HCL PF 1 MG/ML VIAL IV PUSH PRN ×3 (02:07→18:29)
[2016-11-19] MEDS: 1/2 NS + KCL 20 MEQ INJ 1,000 ML IV SCH ×4 (02:07→20:47)
[2016-11-19] MEDS: BISACODYL EC 5 MG TABEC PO SCH (02:07)
[2016-11-19 04:00] VITALS: BP 95/58; PULSE 59; RESP 18; TEMP 96.5; O2SAT 95
[2016-11-19] MEDS: SUCRALFATE 1 GM/10 ML CUP PO SCH ×4 (05:38→20:47)
[2016-11-19 06:48] LABS: AUTOMATED NEUTROPHIL # 3.3 TH/MM3 (1.8-7.7); BASOPHIL % 0.4 % (0.0-2.0); EOSINOPHIL # 0.1 TH/MM3 (0-0.4); EOSINOPHIL % 1.3 % (0.0-4.0); HEMATOCRIT 36.5 % (35.0-46.0); HEMO FLAGS DIFF FINAL; LYMPH % 32.7 % (9.0-44.0); LYMPHOCYTE # 1.9 TH/MM3 (1.0-4.8); MEAN CELL VOLUME 96.1 FL (80.0-100.0); MEAN CORPUSCULAR HEMOGLOBIN 32.8 PG (27.0-34.0); MEAN CORPUSCULAR HGB CONC 34.1 % (32.0-36.0); MONO % 9.3 % (0.0-8.0); NEUT % 56.3 % (16.0-70.0); PLATELET COUNT 200 TH/MM3 (150-450); RED BLOOD COUNT 3.79 MIL/MM3 (4.00-5.30); RED CELL DISTRIBUTION WIDTH 13.8 % (11.6-17.2); WHITE BLOOD COUNT 5.9 TH/MM3 (4.0-11.0)
[2016-11-19 07:19] LABS: MAGNESIUM 2.4 MG/DL (1.5-2.5); POTASSIUM 4.3 MEQ/L (3.5-5.1)
[2016-11-19 08:00] VITALS: BP 105/76; PULSE 54; RESP 20; TEMP 98.1; O2SAT 96
--- NOTE | 2016-11-19 08:11 | HHI.PR ---
Subjective Subjective Notes persistent episodes of abdominal pain overnight, slowly getting better Objective Vitals/I&O Vital Signs Date Time Temp Pulse Resp B/P Pulse Ox O2 Delivery O2 Flow Rate FiO2 11/19/16 04:00 96.5 59 18 95/58 95 11/17/16 19:45 Room Air 11/17/16 18:55 2 Labs Laboratory Tests Test 11/18/16 11/19/16 23:56 05:57 Urine Color YELLOW Urine Turbidity CLEAR Urine pH 6.5 Urine Specific [place] 1.015 Urine Protein NEG Urine Glucose (UA) NEG Urine Ketones NEG Urine Occult Blood NEG Urine Nitrite NEG Urine Bilirubin NEG Urine Urobilinogen LESS THAN 2.0 Urine Leukocyte Esterase TRACE Urine RBC LESS THAN 1 Urine WBC 3 Urine Bacteria RARE Urine Mucus FEW Microscopic Urinalysis Comment CULT NOT INDICATED White Blood Count 5.9 Red Blood Count 3.79 Hemoglobin 12.4 Hematocrit 36.5 Mean Corpuscular Volume 96.1 Mean Corpuscular Hemoglobin 32.8 Mean Corpuscular Hemoglobin 34.1 Concent Red Cell Distribution Width 13.8 Platelet Count 200 Mean Platelet Volume 8.5 Neutrophils (%) (Auto) 56.3 Lymphocytes (%) (Auto) 32.7 Monocytes (%) (Auto) 9.3 Eosinophils (%) (Auto) 1.3 Basophils (%) (Auto) 0.4 Neutrophils # (Auto) 3.3 Lymphocytes # (Auto) 1.9 Monocytes # (Auto) 0.5 Eosinophils # (Auto) 0.1 Basophils # (Auto) 0.0 CBC Comment DIFF FINAL Differential Comment Sodium Level 142 Potassium Level 4.3 Chloride Level 107 Carbon Dioxide Level 26.0 Anion Gap 9 Blood Urea Nitrogen 4 Creatinine 0.27 Estimat Glomerular Filtration 268 Rate Random Glucose 80 Calcium Level 8.0 Magnesium Level 2.4 Lipase 211 Cardiovascular: Regular Lungs: Clear Abdomen: Other (soft epigastric pain to deep palpation, +ttp mid lower abdomen) A/P Assessment and Plan Hx of rygb 2003 acute onset of severe abdominal pain, s/p egd with small ulcers , stricture PLAN Liquid diet advance as tolerated pain control PPI, carafate appreciate medicine recommendations UGI SBFT today possible d/c home later today Bernard Foreman MD Nov 19, 2016 08:11
[2016-11-19] MEDS: MULTIVITAMIN INJ 10 ML, THIAMINE INJ 100 MG, FOLIC ACID INJ 1 MG in SODIUM CHLORID 0.9%... IV SCH (09:15)
[2016-11-19] MEDS: SODIUM CHLORIDE 0.9% FLUSH 10 ML FLUSH IV FLUSH SCH ×2 (09:16→20:48)
[2016-11-19] MEDS: PANTOPRAZOLE SODIUM 40 MG VIAL IV PUSH SCH ×2 (09:16→20:47)
[2016-11-19 16:00] VITALS: BP 110/75; PULSE 56; RESP 18; TEMP 98.6; O2SAT 97
--- NOTE | 2016-11-19 17:44 | RADRPT ---
EXAM DATE/TIME: 11/19/2016 10:56 CORRECTION Corrected on: November 21, 2016; added image count [place] COMPARISON: [place] CT abdomen and pelvis 11/17/2016. INDICATIONS : Abdominal pain and diarrhea. FLUORO TIME: 2.4 minutes IMAGE COUNT: 28 CONTRAST: Liquid E-Z Paque Barium Sulfate (60% w/v, 41% w/w) IMAGING TIME(S): 15 min, 30 min, 45 min, 1 hr, 1.5 hrs, 2 hrs. MEDICAL HISTORY : None. SURGICAL HISTORY : Gastric bypass. Cholecystectomy. Appendectomy. ENCOUNTER: Initial ACUITY: 1 week PAIN SCORE: 4/10 LOCATION: Bilateral abdomen. FINDINGS: The initial zipper repairer radiograph shows a nonobstructive bowel gas pattern. No evidence of free air. Upper GI portion of the study shows evidence of gastric bypass. Contrast passes through the gastric r emnant without obstruction. Total small bowel transit time is approximately 2.5 hours. There is tethering of loops in the midabdo men, upper pelvic cavity and also in the right lower quadrant. This seems to primarily affect the ile um. No distended loops or abrupt caliber changes are demonstrated. CONCLUSION: 1. Previous gastric bypass without acute abnormality. 2. Multifocal small bowel tethering in the mid abdomen, right lower quadrant and upper pelvic cavity. No obstruction. Derek Stuart MD on November 19, 2016 at 17:38 Board Certified Radiologist. This report was verified electronically. on November 21, 2016 at 19:43 Board Certified Radiologist. This report was verified electronically.
[2016-11-19 20:00] VITALS: BP 112/65; PULSE 60; RESP 20; TEMP 97.1; O2SAT 97
[2016-11-20] VITALS: BP 112/58; PULSE 55; RESP 18; TEMP 96; O2SAT 98
[2016-11-20] MEDS: HYDROmorphone HCL PF 1 MG/ML VIAL IV PUSH PRN ×3 (00:56→13:30)
[2016-11-20] MEDS: SUCRALFATE 1 GM/10 ML CUP PO SCH ×2 (06:33→11:54)
[2016-11-20] MEDS: SODIUM CHLORIDE 0.9% FLUSH 10 ML FLUSH IV FLUSH SCH (07:24)
[2016-11-20 08:00] VITALS: BP 118/76; PULSE 63; RESP 16; TEMP 98.1; O2SAT 98
[2016-11-20] MEDS: MULTIVITAMIN INJ 10 ML, THIAMINE INJ 100 MG, FOLIC ACID INJ 1 MG in SODIUM CHLORID 0.9%... IV SCH (09:44)
[2016-11-20] MEDS: PANTOPRAZOLE SODIUM 40 MG VIAL IV PUSH SCH (09:45)
[2016-11-20] MEDS: 1/2 NS + KCL 20 MEQ INJ 1,000 ML IV SCH (11:01)
[2016-11-20 12:00] VITALS: BP 108/77; PULSE 75; RESP 17; TEMP 98.4; O2SAT 92
[2016-11-20] MEDS ORDERED: CARA1TAB6 PO (13:32)
--- NOTE | 2016-11-20 13:35 | HHI.PR ---
Subjective Subjective Notes Pt with less pain no N/V pos BM Objective Vitals/I&O Vital Signs Date Time Temp Pulse Resp B/P Pulse Ox O2 Delivery O2 Flow Rate FiO2 11/20/16 12:00 98.4 75 17 108/77 92 11/17/16 19:45 Room Air 11/17/16 18:55 2 Lungs: Clear Abdomen: Non-tender Extremities: Perfused A/P Assessment and Plan abd pain Marginal ulcer better today D/C home on soft diet Robin Lemus MD Nov 20, 2016 13:35
[2016-11-20 14:00] VITALS: RESP 18
--- NOTE | 2016-11-24 16:02 | HHI.DS ---
Discharge Summary Admission Date Nov 17, 2016 at 17:52 Discharge Date: Nov 20, 2016 Admitting Diagnosis intractable abdominal pain Brief History Hx of rygb 2003 acute onset of severe abdominal pain PE at Discharge Alert and awake Cardio: RRR Res; CTAB Abd: soft non tender Hospital Course This is a 46 year old female history of RYGB in 2003 with acute onset of severe abdominal pain. He is s/p egd with small ulcers, stricture. An UGI was completed during the admission. The patient was started on PPI and Carafate. The patient was able to tolerate a liquid diet. The patient will follow up in the office. Pt Condition on Discharge: Good Discharge Disposition: Discharge Home Discharge Instructions DIET: Follow Instructions for: As Tolerated, No Restrictions Activities you can perform: Regular-No Restrictions Ivis Johnson Nov 24, 2016 16:02
== END 2016-11-20 15:02 | disposition home or self-care (01) ==
LOC: NEPC 15:52 → NEDA 17:52 → N07B 20:02
PROVIDERS: ADMIT Surgery; ATTEND Surgery
DX: K91.89 Other postprocedural complications and disorders of digestive system (principal); K25.9 Gastric ulcer, unspecified as acute or chronic, without hemorrhage or perforation; K29.70 Gastritis, unspecified, without bleeding; K21.9 Gastro-esophageal reflux disease without esophagitis; J45.909 Unspecified asthma, uncomplicated; F32.9 Major depressive disorder, single episode, unspecified; F41.9 Anxiety disorder, unspecified; M19.90 Unspecified osteoarthritis, unspecified site; E66.9 Obesity, unspecified; Z68.32 Body mass index [BMI] 32.0-32.9, adult; Z98.84 Bariatric surgery status; Z91.041 Radiographic dye allergy status
CPT/HCPCS: 43245; 74245; 80048; 80053; 81001; 83605; 83690; 83735; 85025; 85610; 85730; 93005; 94150; 96361; 96365; 96375; 96376; 99285; C1726; C9113; G0378; J1170; J1200; J1885; J2270; J2405; J2765; J3411; J7030; J7040